=== PATIENT | male | born 1985 | race Caucasian/White ===

== ENCOUNTER 2019-11-25 10:15 | Emergency (ER) | payer OTHER ==
[~2019-11-25] VITALS: Ht 185.4 cm; Wt 86.4 kg
== END 2019-11-25 11:28 | disposition left against medical advice (07) ==
LOC: ER 10:15
DX: Z11.59 Encounter for screening for other viral diseases (principal); Z53.21 Procedure and treatment not carried out due to patient leaving prior to being seen by health care provider